=== PATIENT | male | born 1980 | race Caucasian/White ===

== ENCOUNTER 2018-07-07 06:40 | Inpatient (IN) | payer OTHER ==
[~2018-07-07] VITALS: Ht 200.7 cm; Wt 99.8 kg
--- NOTE | ~2018-07-07 | PATH ---
[facility] [address] [place] [address] PATHOLOGY RPT PROCEDURE Name: MILESDIANA Room #: 220-P DIS IN M.R.#: [id number] Admission: 07/07/18 Date of : 76 Discharge: 07/09/18 Report #: [id number] Path Case #: [id number] [facility] Accession Number: [id number] . 01 Material submitted: . TERMINAL ILEUM R/O CROHNS . 01 Clinical history: . Pre-Op DX: Abnormal CT, abdominal pain Post-Op DX: Normal colon . 02 Diagnosis: Small bowel mucosa, terminal ileum, rule out Crohn's: - Peyer's patches. - No histopathologic abnormality. - Negative for active inflammation, dysplasia or malignancy. . (IUV:mml; 07/10/18) [facility]/07/10/2018 . 02 Electronically signed: . Lissett Duran MD, Pathologist NPI- [id number] . 01 Gross description: . Received in formalin labeled "Miles, Diana, BX terminal ileum, rule out Crohn's," are 3 segments of james soft tissue measuring 0.9 x 0.8 x 0.2 cm in aggregate dimensions and ranging from 0.4 to 0.6 cm in maximum dimension. The specimen is submitted entirely in cassette A1. (TSD; 07/09/2018) TOB/TOB . 02 Pathologist provided ICD-10: R10.9 . 02 CPT . 251163 Performed at: [address], [place] [id number] MD Ish Eagle MD Phone: [phone] Performed at: [address] [id number] MD Lissett Duran MD Phone: [phone]
[~2018-07-07 06:40] MED LIST: AZITHROMYCIN 2250 MG PO; PREDNISONE 20 M20 MG PO; PROAIR HFA8.5 GM PO; ROBAFEN AC SYR120 ML PO
[2018-07-07 07:07] VITALS: BP 146/91
[2018-07-07 07:07] LABS: URINE BILIRUBIN NEGATIVE (Negative); URINE BLOOD TRACE (Negative); URINE CLARITY CLEAR; URINE COLOR YELLOW; URINE GLUCOSE-RANDOM* NEGATIVE (Negative); URINE KETONES NEGATIVE (Negative); URINE LEUKOCYTES NEGATIVE (Negative); URINE NITRITE NEGATIVE (Negative); URINE PROTEIN (DIPSTICK) NEGATIVE (Negative); URINE SPECIFIC GRAVITY 1.015 (1.005-1.035); URINE UROBILINOGEN 0.2 E.U./dl (0.2-1.0)
[2018-07-07 07:07] LABS: ABSOLUTE NEUTROPHILS 10.1 thou/uL (1.4-8.2); BASOPHILS 0.6 % (0.0-2.0); EOSINOPHILS 3.2 % (0.0-3.0); HEMATOCRIT 50.4 % (42.0-52.0); HEMOGLOBIN 16.9 gm/dL (14.0-18.0); LYMPHOCYTES 23.6 % (24.0-44.0); MCH 28.9 pg (26.0-34.0); MCHC 33.6 g/dL (28.0-37.0); MCV 86.1 fL (80.0-100.0); MONOCYTES 4.6 % (1.0-8.0); PLATELET COUNT 262 thou/uL (150-400); RBC 5.85 mil/uL (4.50-6.00); RDW 14.6 % (10.5-14.5); WBC 14.9 thou/uL (4.0-11.0)
[2018-07-07] MEDS ORDERED: NEXIUM40 MG PO (07:13)
[2018-07-07 07:18] LABS: ANION GAP 8 mmol/L (7-16); BUN 13 mg/dL (7-18); CALCIUM 9.2 mg/dL (8.5-10.1); CHLORIDE 105 mmol/L (98-107); CO2 25 mmol/L (21-32); CREATININE 1.4 mg/dL (0.7-1.3); GLUCOSE 100 mg/dL (74-106); POTASSIUM 4.3 mmol/L (3.5-5.1); SODIUM 138 mmol/L (136-145)
[2018-07-07 07:24] LABS: DIRECT BILIRUBIN < 0.1 mg/dL (<0.1-0.3); LIPASE 182 U/L (73-393); SGOT 18 U/L (15-37); SGPT 25 U/L (30-65); TOTAL BILIRUBIN 0.3 mg/dL (<0.1-1.0); TOTAL PROTEIN 7.6 g/dL (6.4-8.2)
[2018-07-07 09:00] VITALS: BP 146/91
[2018-07-07 09:32] VITALS: BP 118/69
[2018-07-07] MEDS ORDERED: AMOXICILLIN 50500 MG PO (09:52)
[2018-07-07] MEDS ORDERED: IBUPROFEN 200200 M1 PO (09:55)
[2018-07-07] MEDS ORDERED: ALEVE220 MG PO (09:56)
[2018-07-07 14:14] VITALS: BP 118/69
[2018-07-07 18:16] VITALS: BP 118/69
[2018-07-07 18:42] VITALS: BP 115/63
[2018-07-08 04:45] VITALS: BP 113/71
[2018-07-08 06:01] LABS: HEMATOCRIT 44.1 % (42.0-52.0); MCHC 33.1 g/dL (28.0-37.0); MCV 87.4 fL (80.0-100.0); RBC 5.05 mil/uL (4.50-6.00); RDW 14.3 % (10.5-14.5); WBC 7.9 thou/uL (4.0-11.0)
[2018-07-08 06:16] LABS: CALCIUM 8.4 mg/dL (8.5-10.1); CREATININE 1.1 mg/dL (0.7-1.3); POTASSIUM 4.2 mmol/L (3.5-5.1)
[2018-07-08 06:19] LABS: HEMOGLOBIN 14.6 gm/dL (14.0-18.0)
[2018-07-08 08:05] VITALS: BP 120/74
[2018-07-09 00:02] VITALS: BP 129/90
[2018-07-09 08:09] VITALS: BP 112/77
== END 2018-07-09 17:00 | disposition home or self-care (01) | DRG 392 ==
LOC: ER 06:40 → EROBS 08:31 → 4W 08:31 → SICU 08:31 → 4W 09:33 → SICU 07-08 18:10
PROVIDERS: Emergency Medicine; Hospitalist
PROC: 0DBB8ZX Excision of Ileum, Via Natural or Artificial Opening Endoscopic, Diagnostic (ICD-10-PCS; principal; 2018-07-09)
DX: K52.9 Noninfective gastroenteritis and colitis, unspecified (principal); K56.600 Partial intestinal obstruction, unspecified as to cause; K57.30 Diverticulosis of large intestine without perforation or abscess without bleeding; K21.9 Gastro-esophageal reflux disease without esophagitis; J45.909 Unspecified asthma, uncomplicated; F17.210 Nicotine dependence, cigarettes, uncomplicated; Z79.899 Other long term (current) drug therapy; Z88.1 Allergy status to other antibiotic agents; Z88.8 Allergy status to other drugs, medicaments and biological substances; Z80.8 Family history of malignant neoplasm of other organs or systems; Z80.52 Family history of malignant neoplasm of bladder; Z80.6 Family history of leukemia
CPT/HCPCS: 10040; 15002; 62110; 62900; 70005